=== PATIENT | female | born 1980 | race Caucasian/White ===

== ENCOUNTER 2020-12-20 20:57 | Emergency (ER) | payer OTHER ==
[~2020-12-20] VITALS: Ht 167.6 cm; Wt 106.8 kg
[2020-12-20 21:21] LABS: BILIRUBIN,URINE NEGATIVE (NEG); CLARITY,URINE CLEAR; COLOR,URINE YELLOW; NITRITE,URINE NEGATIVE (NEG); PROTEIN,URINE NEGATIVE (NEG-TRACE); UROBILINOGEN,URINE 0.2 mg/dL (0.2 mg/dL)
[2020-12-20 21:30] LABS: BACTERIA,URINE FEW /HPF (0-FEW); RBC,URINE 0 /HPF (0-2)
[2020-12-20 21:37] LABS: BASO % 0 % (0-3); EOS # 0.1 x10^3/uL (0.0-0.7); EOS % 1 % (0-3); HEMATOCRIT 36.8 % (36.0-47.0); HEMOGLOBIN 12.2 g/dL (12.0-15.5); LYMPH # 1.1 x10^3/uL (1.0-4.8); LYMPH % 16 % (24-48); MEAN CORPUSCULAR HEMOGLOBIN 25 pg (25-35); MEAN CORPUSCULAR HGB CONC 33 g/dL (31-37); MEAN CORPUSCULAR VOLUME 76 fL (79-100); MONO # 0.9 x10^3/uL (0.0-1.1); MONO % 13 % (0-9); NEUT # 4.8 x10^3/uL (1.8-7.7); NEUT % 70 % (31-73); PLATELET COUNT 234 x10^3/uL (140-400); RED BLOOD COUNT 4.87 x10^6/uL (3.50-5.40); RED CELL DISTRIBUTION WIDTH 16.7 % (11.5-14.5)
[2020-12-20 21:46] LABS: PROTHROMBIN TIME PATIENT 12.5 SEC (11.7-14.0)
[2020-12-20 21:47] LABS: CALCIUM 8.4 mg/dL (8.5-10.1); CREATININE 0.8 mg/dL (0.6-1.0); GFR 79.9; POTASSIUM 3.6 mmol/L (3.5-5.1)
[2020-12-20 21:53] LABS: ALBUMIN 3.1 g/dL (3.4-5.0); ALBUMIN/GLOBULIN RATIO 0.8 (1.0-1.7); TOTAL BILIRUBIN 0.3 mg/dL (0.2-1.0); TOTAL PROTEIN 6.8 g/dL (6.4-8.2)
--- NOTE | 2020-12-20 21:53 | PHYS DOC ---
Past Medical History Past Medical History: No Pertinent History (PHILLIP PEACE PROGRAM DIRECTOR/TRAFFIC DIRECTOR) Past Surgical History: , Tubal ligation, Other Additional Past Surgical Histo: Tubes untied (PHILLIP PEACE PROGRAM DIRECTOR/TRAFFIC DIRECTOR) Smoking Status: Never Smoker Alcohol Use: None (PHILLIP PEACE APRN) General Adult EDM: Chief Complaint: ABDOMINAL PAIN IN HPI: HPI: Patient is a 40 year old female who presents with left lower quadrant intermittent sharp pains that come when she coughs or when she went to sit up today. She states that she does have constant left lower quadrant cramping but she rates that pain at about 3 out of 10. She states this is all been going on since Monday. She states she has been having vaginal spotting but the blood is not in her underwear was just when she wiped. She states that it has since stopped. Patient does not currently have an OB doctor. She stated her last menstrual period was November 10. Patient states that this is her second . She has had 3 miscarriages and she has 4 living children. (PHILLIP PEACE PROGRAM DIRECTOR/TRAFFIC DIRECTOR) Review of Systems: Review of Systems: Constitutional: Denies fever or chills. [] Eyes: Denies change in visual acuity. [] HENT: Denies nasal congestion or sore throat. [] Respiratory: Denies cough or shortness of breath. [] Cardiovascular: Denies chest pain or edema. [] GI: + Left lower quadrant abdominal pain, denies nausea, vomiting, bloody stools or diarrhea. [] : Denies dysuria. + Vaginal spotting [] Musculoskeletal: Denies back pain or joint pain. [] Integument: Denies rash. [] Neurologic: Denies headache, focal weakness or sensory changes. [] Endocrine: Denies polyuria or polydipsia. [] Lymphatic: Denies swollen glands. [] Psychiatric: Denies depression or anxiety. [] (PHILLIP PEACE PROGRAM DIRECTOR/TRAFFIC DIRECTOR) Heart Score: C/O Chest Pain: No Risk Factors: Risk Factors: DM, Current or recent (<one month) smoker, HTN, HLP, family history of CAD, obesity. Risk Scores: Score 0 - 3: 2.5% MACE over next 6 weeks - Discharge Home Score 4 - 6: 20.3% MACE over next 6 weeks - Admit for Clinical Observation Score 7 - 10: 72.7% MACE over next 6 weeks - Early Invasive Strategies (PHILLIP PEACE APRN) Current Medications: Current Medications Medications (Trade) Dose Ordered Sig/Mari Start Time Stop Time Status Last Admin Dose Admin Sodium Chloride 1,000 ml @ 1,000 mls/hr 1X ONCE 12/20/20 22:00 12/20/20 22:59 UNV (PHILLIP PEACE APRN) Allergies: Allergies: Allergies Coded Allergies Type Severity Reaction Last Updated Verified metaxalone Allergy Unknown bradycardia 12/20/20 Yes morphine Allergy Unknown Hives 12/20/20 Yes nalbuphine Allergy Unknown Rash 12/20/20 Yes (PHILLIP PEACE APRN) Physical Exam: PE: Constitutional: Well developed, well nourished, no acute distress, non-toxic appearance. [] HENT: Normocephalic, atraumatic, bilateral external ears normal, oropharynx moist, no oral exudates, nose normal. [] Eyes: PERRLA, EOMI, conjunctiva normal, no discharge. [] Neck: Normal range of motion, no tenderness, supple, no stridor. [] Cardiovascular:Heart rate regular rhythm, no murmur [] Lungs & Thorax: Bilateral breath sounds clear to auscultation [] Abdomen: Bowel sounds normal, soft, left lower quadrant tenderness, no masses, no pulsatile masses. [] Skin: Warm, dry, no erythema, no rash. [] Back: No tenderness, no CVA tenderness. [] Extremities: No tenderness, no cyanosis, no clubbing, ROM intact, no edema. [] Neurologic: Alert and oriented X 3, normal motor function, normal sensory function, no focal deficits noted. [] Psychologic: Affect normal, judgement normal, mood normal. [] (PHILLIP PEACE APRN) PE: Constitutional: Well developed, well nourished, no acute distress, non-toxic appearance HENT: Normocephalic, atraumatic Eyes: Conjunctiva normal, no discharge Neck: Normal range of motion, supple Lungs & Thorax: No respiratory distress, equal chest rise and fall Skin: Warm, dry, no erythema, no rash Neurologic: Alert and oriented X 3, no focal deficits noted Psychologic: Affect anxious, judgment normal (BRODERICK,SUSANNAH R DO) Current Patient Data: Labs: Laboratory Tests Test 12/20/20 21:05 12/20/20 21:08 12/20/20 21:30 Urine Collection Type Unknown Urine Color Yellow Urine Clarity Clear Urine pH 6.0 (<5.0-8.0) Urine Specific [place] 1.025 (1.000-1.030) Urine Protein Negative mg/dL (NEG-TRACE) Urine Glucose (UA) Negative mg/dL (NEG) Urine Ketones (Stick) 15 mg/dL (NEG) Urine Blood Negative (NEG) Urine Nitrite Negative (NEG) Urine Bilirubin Negative (NEG) Urine Urobilinogen Dipstick 0.2 mg/dL (0.2 mg/dL) Urine Leukocyte Esterase Small (NEG) Urine RBC 0 /HPF (0-2) Urine WBC 5-10 /HPF (0-4) Urine Squamous Epithelial Cells Few /LPF Urine Bacteria Few /HPF (0-FEW) Urine Mucus Mod /LPF POC Urine HCG, Qualitative Hcg positive (Negative) White Blood Count 7.0 x10^3/uL (4.0-11.0) Red Blood Count 4.87 x10^6/uL (3.50-5.40) Hemoglobin 12.2 g/dL (12.0-15.5) Hematocrit 36.8 % (36.0-47.0) Mean Corpuscular Volume 76 fL (79-100) L Mean Corpuscular Hemoglobin 25 pg (25-35) Mean Corpuscular Hemoglobin Concent 33 g/dL (31-37) Red Cell Distribution Width 16.7 % (11.5-14.5) H Platelet Count 234 x10^3/uL (140-400) Neutrophils (%) (Auto) 70 % (31-73) Lymphocytes (%) (Auto) 16 % (24-48) L Monocytes (%) (Auto) 13 % (0-9) H Eosinophils (%) (Auto) 1 % (0-3) Basophils (%) (Auto) 0 % (0-3) Neutrophils # (Auto) 4.8 x10^3/uL (1.8-7.7) Lymphocytes # (Auto) 1.1 x10^3/uL (1.0-4.8) Monocytes # (Auto) 0.9 x10^3/uL (0.0-1.1) Eosinophils # (Auto) 0.1 x10^3/uL (0.0-0.7) Basophils # (Auto) 0.0 x10^3/uL (0.0-0.2) Prothrombin Time 12.5 SEC (11.7-14.0) Prothrombin Time INR 1.0 (0.8-1.1) Sodium Level 137 mmol/L (136-145) Potassium Level 3.6 mmol/L (3.5-5.1) Chloride Level 104 mmol/L (98-107) Carbon Dioxide Level 25 mmol/L (21-32) Anion Gap 8 (6-14) Blood Urea Nitrogen 11 mg/dL (7-20) Creatinine 0.8 mg/dL (0.6-1.0) Estimated GFR (Cockcroft-Gault) 79.9 BUN/Creatinine Ratio 14 (6-20) Glucose Level 92 mg/dL (70-99) Calcium Level 8.4 mg/dL (8.5-10.1) L Total Bilirubin Pending Aspartate Amino Transferase (AST) Pending Alanine Aminotransferase (ALT) Pending Alkaline Phosphatase Pending Total Protein Pending Albumin Pending Albumin/Globulin Ratio Pending Laboratory Tests 12/20/20 21:30 Laboratory Tests 12/20/20 21:30 Vital Signs: Vital Signs Date Time Temp Pulse Resp B/P (MAP) Pulse Ox O2 Delivery O2 Flow Rate FiO2 12/20/20 21:06 98.2 101 18 152/93 (112) 98 Room Air 98.2 (PHILLIP PEACE APRN) EKG: EKG: [] (PHILLIP PEACE APRN) Radiology/Procedures: Radiology/Procedures: [] Impression: [facility] [address] [place] [address] IMAGING REPORT Signed PATIENT: GUILLERMINA WOO ACCOUNT: [id number] : 1980 LOCATION: ER AGE: 40 SEX: F EXAM STATUS: REG ER ORD. PHYSICIAN: PHILLIP PEACE APRN REASON: , ABD PAIN LEFT SIDED, PROCEDURE: OB < 14 WKS Exam: Ultrasound OB less than 14 weeks Indication: Technique: Real-time grayscale and color Doppler images of the pelvis were obtained by the department perfect bind machine operator. Comparisons: None FINDINGS: Uterus measures 9.2 x 3.5 x 6.1 cm. Within the endometrium there is a round anechoic structure with internal yolk sac. pole is also identified measuring 7 mm in diameter. heart rate is measured at 93 bpm. Right ovary measures 2.9 x 1.4 x 1.2 cm. Left ovary measures 2.0 x 1.8 x 1.8 cm. Vascular flow identified in the ovaries bilaterally. No free fluid in the pelvis. IMPRESSION: 1. Single live intrauterine gestation measuring 6 weeks 4 days by current ultrasound. Correlate with LMP. 2. Dedicated survey is recommended to 18-20 weeks gestation. Electronically signed by: Flaquito Palencia MD (12/20/2020 10:36 PM) [facility] DICTATED and SIGNED BY: FLAQUITO PALENCIA MD DATE: 12/20/20 [id number] (PHILLIP PEACE APRN) Course & Med Decision Making: Course & Med Decision Making Pertinent Labs and Imaging studies reviewed. (See chart for details) See HPI. Alert and oriented x4. Ambulatory with a steady gait. Left lower quadrant tenderness with palpation. Speaks in full clear sentences. Skin pink warm and dry. No vaginal bleeding at this time. Patient states she is eating and drinking appropriately. Patient denies chest pain, shortness of air, headache, dizziness, focal weakness, numbness or tingling, diarrhea, constipation, diarrhea, fever, urinary symptoms, back pain. Ultrasound shows a intrauterine gestation measuring 6 weeks 4 days but with a heart rate of 93. Her beta serum is 7453. Patient will be treated for a UTI. 2300: Dr Broderick to follow up on Type and Screen before discharge. [] (PHILLIP PEACE APRN) Course & Med Decision Making ABO: A negative. Rhogam provided. Copies of ultrasound report, beta-hCG level, and ABO provided. Patient stable for discharge with outpatient follow-up with PCP/OB. Discussed findings and plan with patient and spouse, who acknowledge understanding and agreement. (SUSANNAH BRODERICK DO) Romain Disclaimer: Romain Disclaimer: This electronic medical record was generated, in whole or in part, using a voice recognition dictation system. (PHILLIP PEACE APRN) Departure Departure Impression: Primary Impression: Threatened miscarriage Additional Impressions: UTI (urinary tract infection) Qualified Codes: N39.0 - Urinary tract infection, site not specified Rh negative status during in first trimester Disposition: 01 DC HOME SELF CARE/HOMELESS Condition: STABLE Referrals: ANJALI PETERSON Jr, MD Patient Instructions: - Urinary Tract Infection, Threatened Miscarriage, Vaginal Bleeding During , First Trimester Additional Instructions: Follow-up with an MACHINE DYER as soon as possible. If begin having severe abdominal pain or heavy bleeding return to the emergency room. Scripts Cephalexin (CEPHALEXIN) 500 Mg Capsule 1 CAP PO BID for 7 Days, #14 CAP Prov: PHILLIP PEACE APRN 12/20/20 Attending Signature Attending Signature I have personally interviewed and examined the patient. All charts, labs, and imaging studies were reviewed. I agree with the PA/POLE CLIMBER's findings, exam, and plan. (SUSANNAH BRODERICK DO) PHILLIP PEACE APRN Dec 20, 2020 21:52 SUSANNAH BRODERICK DO Dec 20, 2020 23:31
[2020-12-20] MEDS ORDERED: IV NORMAL SALINE 1000ML BAG 1,000 ML IV ONE (22:00)
--- NOTE | 2020-12-20 22:38 | RAD ---
Exam: Ultrasound OB less than 14 weeks Indication: Technique: Real-time grayscale and color Doppler images of the pelvis were obtained by the department pastry mixer. Comparisons: None FINDINGS: Uterus measures 9.2 x 3.5 x 6.1 cm. Within the endometrium there is a round anechoic structure with i nternal yolk sac. pole is also identified measuring 7 mm in diameter. heart rate is measu red at 93 bpm. Right ovary measures 2.9 x 1.4 x 1.2 cm. Left ovary measures 2.0 x 1.8 x 1.8 cm. Vascular flow identified in the ovaries bilaterally. No free fluid in the pelvis. IMPRESSION: 1. Single live intrauterine gestation measuring 6 weeks 4 days by current ultrasound. Correlate with LMP. 2. Dedicated survey is recommended to 18-20 weeks gestation. Electronically signed by: Flaquito Forde MD (12/20/2020 10:36 PM) [facility]
[2020-12-20] MEDS ORDERED: CEPH500C PO (22:53)
[2020-12-20 23:46] VITALS: BP 133/77
== END 2020-12-20 23:58 | disposition home or self-care (01) ==
LOC: ER 20:57
DX: O20.0 Threatened abortion (principal); O23.41 Unspecified infection of urinary tract in pregnancy, first trimester; R05 Cough; R10.32 Left lower quadrant pain; Z98.51 Tubal ligation status; Z98.890 Other specified postprocedural states; Z88.6 Allergy status to analgesic agent; Z88.8 Allergy status to other drugs, medicaments and biological substances; Z3A.01 Less than 8 weeks gestation of pregnancy
CPT/HCPCS: 36415; 36430; 76801; 80053; 81001; 81025; 84702; 85025; 85610; 86850; 86900; 86901; 87086; 96360; 99285; J2791; J7030

== ENCOUNTER → 2021-01-01 | Outpatient (CLI) | payer OTHER ==
[2020-12-20 23:46] VITALS: BP 133/77
[~2021-01-01] MED LIST: CEPH500C PO
--- NOTE | 2021-01-01 16:31 | RAD ---
US OB <14 WKS +TV History: Reason: ABSENT VARIABILITY IN FHR IN FIRST TRIMESTER / Spl. Instructions: / History: Comparison: December 20, 2020. Technique: Grayscale and color Doppler imaging of the pelvis was performed using transabdominal techn ique. Findings: The uterus measures 10.4 x 8.9 x 5.8 cm. Heterogeneous myometrial mass within the lower uterine segme nt measures 1.5 x 1.3 x 1.3 cm. Single intrauterine gestational sac with oblong irregular appearance. Yolk sac is identified. There i s debris within the gestational sac. No pole is identified with crown-rump length 1.13 cm. Jailyn mated gestational age by ultrasound 7 weeks 2 days. heart rate 61 bpm. Amniotic fluid is unrema rkable. Right ovary measures 3.1 x 1.3 x 2.1 cm. Left ovary measures 3.8 x 2.8 x 2.7 cm. Normal Doppler flow to the ovaries bilaterally. No adnexal masses are seen. IMPRESSION: 1. Single intrauterine with gestational age 7 weeks 2 days and low heart rate compar ed to prior. Recommend further clinical evaluation and short-term ultrasound follow-up. 2. Small heterogeneous myometrial lesion, likely fibroid. Electronically signed by: Terry Cordova DO (01/01/2021 4:29 PM) [id number]
== END ==
LOC: US 09:50
PROVIDERS: ATTEND Obstetrics & Gynecology
DX: Z34.91 Encounter for supervision of normal pregnancy, unspecified, first trimester (principal); Z3A.01 Less than 8 weeks gestation of pregnancy
CPT/HCPCS: 76801; 76817